=== PATIENT | male | born 1960 | race Caucasian/White ===

== ENCOUNTER 2017-08-28 19:00 | Inpatient (IN) | payer OTHER ==
[~2017-08-28] VITALS: Ht 175.3 cm; Wt 100.7 kg
[~2017-08-28 19:00] MED LIST: DOXY20TA5 PO; LISI-170 PO; METO25TA35 PO; OMEP-110 PO
[2017-08-28 19:53] LABS: BASOPHILS # (AUTO) 0.01 x10^3/uL (0-0.1); BASOPHILS % (AUTO) 0 % (0-1); EOSINOPHILS # (AUTO) 0.03 x10^3/uL (0-0.4); EOSINOPHILS % (AUTO) 0 % (1-7); LYMPHOCYTES # (AUTO) 1.64 x10^3/uL (1-3.4); LYMPHOCYTES % (AUTO) 19 % (22-44); MD NO; MEAN CORPUSCULAR HEMOGLOBIN 29.8 pg (27.5-34.5); MEAN CORPUSCULAR HGB CONC 34.2 g/dL (33.2-36.2); MEAN CORPUSCULAR VOLUME 87.1 fL (81-97); MEAN PLATELET VOLUME 7.8 fL (7.4-10.4); MONOCYTES # (AUTO) 0.34 x10^3/uL (0.2-0.8); MONOCYTES % (AUTO) 4 % (2-9); NEUTROPHILS # (AUTO) 6.85 x10^3/uL (1.8-6.8); NEUTROPHILS % (AUTO) 77 % (42-75); PLATELET COUNT 246 x10^3/uL (130-400); RED BLOOD COUNT 5.41 x10^6/uL (4.38-5.82); RED CELL DISTRIBUTION WIDTH 13.7 % (9.4-14.8)
[2017-08-28] MEDS ORDERED: ASPIRIN 81 MG TABLET CHEW PO ONE (20:00)
[2017-08-28] MEDS ORDERED: NITROGLYCERIN SINGLE TAB 0.4 MG SL PRN (20:00)
[2017-08-28 20:03] LABS: ALBUMIN 4.1 g/dL (3.4-5.0); ANION GAP 8 mmol/L (5-15); CALCIUM 9.2 mg/dL (8.5-10.1); CHLORIDE 103 mmol/L (98-107); CREATININE 1.27 mg/dL (0.7-1.3)
[2017-08-28 20:07] LABS: TROPONIN I < 0.015 ng/mL (0.000-0.045)
[2017-08-28] MEDS ORDERED: NITROGLYCERIN SINGLE TAB 0.4 MG SL ONE (20:07)
[2017-08-28] MEDS ORDERED: ASPIRIN 81 MG TABLET CHEW ONE (20:08)
[2017-08-28] MEDS ORDERED: NITROGLYCERIN 0.4 MG BOTTLE (25 TABS) SL PRN (21:00)
[2017-08-28] MEDS ORDERED: BISACODYL 10 MG SUPP PR PRN (21:00)
[2017-08-28] MEDS ORDERED: ONDANSETRON 2MG/ML, 2ML IVPush PRN (21:00)
[2017-08-28] MEDS ORDERED: morphine SULFATE 10 MG/ML, 1ML IVPush PRN (21:00)
[2017-08-28] MEDS ORDERED: POLYETHYLENE GLYCOL 17 GM PACKET PO PRN (21:00)
[2017-08-28] MEDS ORDERED: SODIUM CHLORIDE FLUSH 10ML SYR IVF PRN (21:00)
[2017-08-28] MEDS: METOPROLOL TARTRATE 25 MG TABLET PO SCH (23:19)
[2017-08-28] MEDS: SODIUM CHLORIDE FLUSH 10ML SYR IVF SCH (23:20)
[2017-08-28 23:21] VITALS: BP 124/76
[2017-08-29] MEDS ORDERED: DOXA2TAB9 PO (01:03)
[2017-08-29] MEDS ORDERED: PRAV20TA2 PO (01:03)
[2017-08-29 01:17] VITALS: BP 129/79
[2017-08-29 02:25] LABS: BASOPHILS # (AUTO) 0.04 x10^3/uL (0-0.1); BASOPHILS % (AUTO) 1 % (0-1); EOSINOPHILS # (AUTO) 0.03 x10^3/uL (0-0.4); EOSINOPHILS % (AUTO) 0 % (1-7); LYMPHOCYTES # (AUTO) 1.58 x10^3/uL (1-3.4); LYMPHOCYTES % (AUTO) 19 % (22-44); MD NO; MEAN CORPUSCULAR HEMOGLOBIN 29.8 pg (27.5-34.5); MEAN CORPUSCULAR HGB CONC 34.5 g/dL (33.2-36.2); MEAN CORPUSCULAR VOLUME 86.4 fL (81-97); MEAN PLATELET VOLUME 7.9 fL (7.4-10.4); MONOCYTES % (AUTO) 7 % (2-9); NEUTROPHILS % (AUTO) 72 % (42-75); PLATELET COUNT 215 x10^3/uL (130-400); RED BLOOD COUNT 5.07 x10^6/uL (4.38-5.82); RED CELL DISTRIBUTION WIDTH 14.1 % (9.4-14.8)
[2017-08-29 02:35] LABS: ALBUMIN 3.6 g/dL (3.4-5.0); ANION GAP 8 mmol/L (5-15); CALCIUM 8.9 mg/dL (8.5-10.1); CHLORIDE 105 mmol/L (98-107)
[2017-08-29 02:39] LABS: TROPONIN I < 0.015 ng/mL (0.000-0.045)
[2017-08-29 02:40] LABS: ALANINE AMINOTRANSFERASE 39 U/L (12-78); ALKALINE PHOSPHATASE 76 U/L (45-117); BILIRUBIN,TOTAL 0.8 mg/dL (0.2-1.0); CHOL/HDL RATIO 3.6; CHOLESTEROL, TOTAL 146 mg/dL (140-239); CREATININE 1.09 mg/dL (0.7-1.3); HDL CHOL % 28 % (26-37); HDL CHOLESTEROL (DIRECT) 41 mg/dL (40-60); LDL CHOLESTEROL,CALCULATED 53 mg/dL (54-169); LDL/HDL RATIO 1.3 (0.5-3.0); TOTAL PROTEIN 6.9 g/dL (6.4-8.2); TRIGLYCERIDES 258 mg/dL (50-200); VLDL CHOLESTEROL 52 mg/dL (0-25)
[2017-08-29] MEDS ORDERED: ASPIRIN 325 MG TABLET EC PO SCH (06:00)
[2017-08-29] MEDS ORDERED: ASPIRIN 81 MG TABLET EC PO SCH (06:00)
[2017-08-29] MEDS ORDERED: ASPIRIN 81 MG TABLET CHEW ONE (06:08)
[2017-08-29 06:50] VITALS: BP 155/88
[2017-08-29 08:19] LABS: TROPONIN I < 0.015 ng/mL (0.000-0.045)
[2017-08-29] MEDS: SODIUM CHLORIDE FLUSH 10ML SYR IVF SCH (08:27)
[2017-08-29] MEDS: ACETAMINOPHEN 325 MG TABLET PO PRN ×2 (08:32→16:47)
[2017-08-29] MEDS ORDERED: LISINOPRIL 20 MG TABLET PO SCH (09:00)
[2017-08-29] MEDS ORDERED: OMEPRAZOLE 20 MG CAPSULE.DR PO SCH (09:00)
[2017-08-29] MEDS ORDERED: SENNA/DOCUSATE TABLET PO SCH (09:00)
[2017-08-29 11:23] VITALS: BP 159/84
[2017-08-29] MEDS: METOPROLOL TARTRATE 25 MG TABLET PO SCH (11:27)
[2017-08-29] MEDS ORDERED: FAMOTIDINE 20 MG TABLET PO ONE (12:30)
[2017-08-29 13:11] LABS: MICROSCOPIC NOT IND
[2017-08-29 13:21] LABS: CULTURE INDICATED? NO
[2017-08-29 13:30] VITALS: BP 138/82
== END 2017-08-29 17:15 | disposition home or self-care (01) | DRG 313 ==
LOC: ED 21:17 → EDIP 21:20 → 5SO 23:10 → DCLOUNGE 08-29 17:02
PROVIDERS: ADMIT Hospitalist; ATTEND Hospitalist
DX: R07.89 Other chest pain (principal); I20.0 Unstable angina; E78.1 Pure hyperglyceridemia; E78.5 Hyperlipidemia, unspecified; F41.9 Anxiety disorder, unspecified; I10 Essential (primary) hypertension; K21.9 Gastro-esophageal reflux disease without esophagitis; N40.0 Benign prostatic hyperplasia without lower urinary tract symptoms; Z82.49 Family history of ischemic heart disease and other diseases of the circulatory system
CPT/HCPCS: 36415; 71045; 78452; 80048; 80053; 80061; 81003; 82040; 83880; 84484; 85025; 85379; 93005; 93017; 99285; A9502; C9898

== ENCOUNTER 2020-02-10 03:06 | Emergency (ER) | payer OTHER ==
[~2020-02-10] VITALS: Ht 175.3 cm; Wt 99.2 kg
[~2020-02-10 03:06] MED LIST changes: +DOXA2TAB9 PO; +PRAV20TA2 PO
[2020-02-10] MEDS ORDERED: LIDOCAINE 2%,20 ML JEL.PF.APP MM ONE ×2 (03:51→04:00)
--- NOTE | 2020-02-10 04:18 | NUR ---
PT STATES TAKING FLOMAX AND DOXASOZYN EVERYDAY FOR BPH BUT STATES NOT TAKING IT TODAY. PT HAVING INCREASED FREQUENCY WITH DRIBBLING. PT BLADDER SCANNED AT 805 ML AND MEDICATED PER JUN AND MCALLISTER CATH PLACED ON 1ST TRY WITHOUT DIFFICULTY. PT STATES RELIEF BUT STILL HAS SOME SLIGHT PAIN FROM INSERTION.
[2020-02-10 04:34] LABS: MICROSCOPIC NOT IND
[2020-02-10 05:48] VITALS: BP 142/83
== END 2020-02-10 06:02 | disposition home or self-care (01) ==
LOC: ED 05:40
DX: N40.1 Benign prostatic hyperplasia with lower urinary tract symptoms (principal); R33.8 Other retention of urine; R10.30 Lower abdominal pain, unspecified; I10 Essential (primary) hypertension
CPT/HCPCS: 51702; 81003; 99284